=== PATIENT | male | born 1990 | race Caucasian/White ===

== ENCOUNTER 2016-11-29 22:33 | Emergency (ER) | payer BC ==
--- NOTE | ~2016-11-29 | CR63 ---
[facility]. [facility] A Service [facility] RADIOLOGY TEXT RESULTS PATIENT: MERRY CABRERA LOCATION: SED : [birth year] UNIT #: [id number] AGE: [address]: Rajwinder To SEX: M ORDER DR: [id number] [place] [address] [id number] E MR#: [id number] Acc #: [id number] NAME: MERRY CABRERA : 1990 SEX: M STUDY DATE/TIME: 11/29/2016 22:36 UNIT: SED ROOM: STUDY DESCRIPTION: CR Chest 2 View Attending Physician: Rajwinder To P.A.-C. Ordering Physician: Rajwinder To P.A.-C. Primary Care Physician: Primary Care Physician No MEDICAL IMAGING REPORT This report is preliminary unless electronic signature is present. EXAM Chest x-ray 11/29/2016 HISTORY 26-year-old male in the ED complaining of 1-week history of cough, fever, dizziness and nausea. TECHNIQUE PA and lateral upright chest series. FINDINGS The exam shows mild focal infiltrate in the lingula. Remaining portions of both lungs are clear. No visible pleural effusion. Heart size and pulmonary vascularity are normal. IMPRESSION Focal infiltrate in the lingula. Dictated by... Syd Rice M.D. THIS IS AN ELECTRONICALLY VERIFIED REPORT Syd Rice M.D. at 11/30/2016 4:05 AM KAELA/xi TD: 11/30/2016 01:17 JOB #: [id number] MEDICAL IMAGING REPORT [facility] A Service [facility] RADIOLOGY TEXT RESULTS PATIENT: MERRY CABRERA LOCATION: SED : [birth year] UNIT #: [id number] AGE: [address]: Rajwinder To SEX: M ORDER DR: Page 1 of 1
[~2016-11-29 22:33] MED LIST: ALBUTEROL17 GM INH; AMOXICILLIN875 MG PO; AUGMENTIN875 M1 PO; BROMFED DM COU118 ML PO; DECADRON PO; DELTASONE20 MG PO; DOLOBID500 MG PO; HYDROMET SYRUP480 ML PO; IBUPROFEN PO; LORTAB 5/500 TA1 TA1 PO; MOTRIN20 MG/ML PO; NO MEDICATIONS; NORVASC PO; NORVASC10 MG PO; PREDNISONE PO; ROBAXIN500 MG PO; VOLTAREN50 MG PO; VOLTAREN75 MG PO; ZESTRIL10 M1 PO
[2016-11-29 22:52] LABS: INFLUENZA A NEG (NEG); INFLUENZA B NEG (NEG)
[2016-11-29 23:22] LABS: BASOPHIL# 0.1 X10e3 (0-0.3); BASOPHIL% 0.5 % (0-2.5); EOSINOPHIL% 0.1 % (0.0-7.0); HEMATOCRIT 42.8 % (38.0-50.0); HEMOGLOBIN 14.5 gm/dL (13.0-16.0); LYMPHOCYTE% 7.9 % (17.0-45.0); MEAN CELL VOLUME 85.1 FL (83-96); MEAN CORPUSCULAR HEMOGLOBIN 28.9 PG (28-34); MEAN PLATELET VOLUME 8.3 FL (6.5-11.5); MONOCYTE# 2.1 X10e3 (0-1.0); MONOCYTE% 8.2 % (3.0-12.0); NEUTROPHIL# 21.4 X10e3 (1.5-7.1); NEUTROPHIL% 83.3 % (40-75); PLATELET COUNT 257 X10e3 (140-420); RED BLOOD COUNT 5.03 X10e (3.90-5.60); RED CELL DISTRIBUTION WIDTH 13.6 % (11.0-15.5); WHITE BLOOD COUNT 25.7 X10e3 (4.0-10.5)
[2016-11-29 23:25] LABS: DIFF IND YES
[2016-11-29 23:29] LABS: CALCIUM SERUM 8.7 mg/dL (8.4-10.2); POTASSIUM 3.9 mmol/L (3.5-5.1)
[2016-11-29 23:59] LABS: DIFFERENTIAL COMMENT Y; PLATELET ESTIMATE NORMAL (NORMAL)
== END 2016-11-30 00:30 | disposition home or self-care (01) ==
LOC: SED 22:33
PROVIDERS: Physician Assistant
DX: J18.1 Lobar pneumonia, unspecified organism (principal); J02.0 Streptococcal pharyngitis; I10 Essential (primary) hypertension
CPT/HCPCS: 36415; 71020; 80048; 83605; 85025; 87040; 87804; 87880; 96365; 96372; 96375; 99284; J0561; J0696; J2930

== ENCOUNTER 2017-04-21 02:45 | Emergency (ER) | payer BC ==
[~2017-04-21] VITALS: Ht 172.7 cm; Wt 111.1 kg
--- NOTE | ~2017-04-21 | CT16 ---
[facility] A Service of [facility] RADIOLOGY TEXT RESULTS PATIENT: MERRY CABRERA LOCATION: SED : [birth year] UNIT #: [id number] AGE: [address]: John Ravi MD SEX: M ORDER DR: [id number] [address] [address] [id number] E MR#: [id number] Acc #: [id number] NAME: MERRY CABRERA : 1990 SEX: M STUDY DATE/TIME: 04/21/2017 UNIT: SED ROOM: STUDY DESCRIPTION: CT Angio Chest for PE Attending Physician: John Ravi M.D. Ordering Physician: John Ravi M.D. Primary Care Physician: Primary Care Physician No MEDICAL IMAGING REPORT This report is preliminary unless electronic signature is present. EXAM Chest CTA 04/21 at 04:01 INDICATIONS Elevated D-dimer. Productive cough with body aches and chest pain with inspiration. Wheezing, shortness of air. Symptoms for 1 week. TECHNIQUE Axial images were obtained through the chest following IV contrast administration. 3-D reformats were obtained. No comparison chest CT. The CT exam was performed with one or more of the following radiation dose reduction techniques: automatic exposure control, adjustment of mA and/or kV according to patient size, and iterative reconstruction. FINDINGS There is no pulmonary embolism or aortic dissection. There is a small left and moderate right pleural effusion. No pericardial fluid. There is mediastinal and hilar adenopathy. The right hilar node measures 2.1 x 1.7 cm. Left hilar node measures about 1.5 cm short axis. There is a right paratracheal node measuring 1.8 x 1.6 cm. The azygoesophageal recess node measures about 1.7 cm short axis. Multiple other prominent nodes are seen. There is septal thickening in the lungs suggesting edema. However, multi focal alveolar infiltrates are seen compatible with pneumonia. These are worse in the right upper lobe. No pneumothorax. Note is made of a broad-based disc osteophyte complex at T12-L1 resulting in moderate to severe central canal stenosis. The upper abdomen is unremarkable. IMPRESSION 1. No PE or aortic dissection. 2. Bilateral effusions right greater than left STS. [facility] A Service of [facility] RADIOLOGY TEXT RESULTS PATIENT: MERRY CABRERA LOCATION: SED : [birth year] UNIT #: [id number] AGE: [address]: John Ravi MD SEX: M ORDER DR: 3. Mediastinal and bilateral hilar adenopathy. 4. There does appear to be of developing pulmonary edema. More confluent areas of alveolar infiltrate in both lungs, most severe in the right upper lobe, is concerning for superimposed pneumonia. 5. Followup chest CT in 3 months with contrast is recommended for further characterization of the adenopathy. 6. Note is made of a disc osteophyte complex at T12-L1 causing moderate to severe central canal stenosis. Dictated by... Marc Valencia Jr., M.D. THIS IS AN ELECTRONICALLY VERIFIED REPORT Marc Valencia Jr., M.D. at 04/21/2017 8:34 PM NARCISA/juana TD: 04/21/2017 12:35 JOB #: [id number] MEDICAL IMAGING REPORT Page 1 of 1
--- NOTE | ~2017-04-21 | CR72 ---
[facility] A Service of [facility] RADIOLOGY TEXT RESULTS PATIENT: MERRY CABRERA LOCATION: SED : [birth year] UNIT #: [id number] AGE: [address]: John Ravi MD SEX: M ORDER DR: [id number] [place] [id number] E MR#: [id number] Acc #: [id number] NAME: MERRY CABRERA : 1990 SEX: M STUDY DATE/TIME: 04/21/2017 03:26 UNIT: SED ROOM: STUDY DESCRIPTION: CR Chest Single View Portable Attending Physician: John Ravi M.D. Ordering Physician: John Ravi M.D. Primary Care Physician: Primary Care Physician No MEDICAL IMAGING REPORT This report is preliminary unless electronic signature is present. EXAM Portable chest, 04/21 at 03:26 INDICATIONS Productive cough, body aches, wheezing and pain with deep inspiration for 1 week. FINDINGS AP portable chest compared with 11/29/2016. Heart is enlarged. There is vascular congestion. There are bilateral [id number] lung interstitial and alveolar infiltrates. Considerations include pulmonary edema and/or pneumonia. No pneumothorax is seen. There is probably a trace amount of left side pleural fluid. Dictated by... Marc Valencia Jr., M.D. THIS IS AN ELECTRONICALLY VERIFIED REPORT Marc Valencia Jr., M.D. at 04/21/2017 8:34 PM NARCISA/buddy TD: 04/21/2017 12:33 JOB #: [id number] MEDICAL IMAGING REPORT Page 1 of 1
--- NOTE | ~2017-04-21 | EKG ---
PATIENT: MERRY CABRERA UNIT #: [id number] Ventricular Rate: 104 BPM Atrial Rate: 104 BPM P-R Interval: 134 ms QRS Duration: 98 ms Q-T Interval: 372 ms QTC Calculation(Bezet): 489 ms P [place]: 62 degrees Calculated R [place]: 42 degrees Calculated T [place]: 75 degrees Diagnosis Line: Sinus tachycardia Diagnosis Line: Left atrial enlargement Diagnosis Line: Nonspecific T wave abnormality Diagnosis Line: Abnormal ECG Diagnosis Line: When compared with ECG of 28-AUG-2016 00:28, Diagnosis Line: No significant change was found Diagnosis Line: Confirmed by MAGNOLIA HARRIS MD ([id number]) on 04/21/2017 Diagnosis Line: 7:35:23 PM INTERPRETING MD: STEVEN MARIN
[2017-04-21 03:25] LABS: BASOPHIL# 0.1 X10e3 (0-0.3); EOSINOPHIL# 0.3 X10e3 (0-0.7); EOSINOPHIL% 2.3 % (0.0-7.0); HEMATOCRIT 46.2 % (38.0-50.0); HEMOGLOBIN 15.7 gm/dL (13.0-16.0); LYMPHOCYTE# 3.3 X10e3 (1.0-3.5); LYMPHOCYTE% 26.6 % (17.0-45.0); MEAN CELL VOLUME 86.5 FL (83-96); MEAN CORPUSCULAR HEMOGLOBIN 29.4 PG (28-34); MEAN PLATELET VOLUME 9.4 FL (6.5-11.5); MONOCYTE# 0.8 X10e3 (0-1.0); MONOCYTE% 6.3 % (3.0-12.0); NEUTROPHIL% 63.8 % (40-75); PLATELET COUNT 293 X10e3 (140-420); RED BLOOD COUNT 5.34 X10e (3.90-5.60); RED CELL DISTRIBUTION WIDTH 12.8 % (11.0-15.5); WHITE BLOOD COUNT 12.6 X10e3 (4.0-10.5)
[2017-04-21 03:26] LABS: DIFF IND NO
[2017-04-21 03:36] LABS: POC - CKMB 6.1 ng/mL (0.0-7.9); POC - TROPONIN <0.05 ng/mL (<=0.05)
[2017-04-21 03:40] LABS: ALBUMIN SERUM 3.8 g/dL (3.5-5.0); BILIRUBIN, DIRECT 0.1 mg/dL (0.0-0.2); BILIRUBIN,INDIRECT 0.5 mg/dL (0.0-0.9); BILIRUBIN,TOTAL 0.6 mg/dL (0.2-2.0); BUN/CREATININE RATIO 12.22; CALCIUM SERUM 9.1 mg/dL (8.4-10.2); CREATININE SERUM 0.9 mg/dL (0.6-1.4); POTASSIUM 3.6 mmol/L (3.5-5.1); PROTEIN TOTAL SERUM 7.1 g/dL (6.0-8.3)
[2017-04-21 04:28] LABS: AMPHETAMINE NEG (NEG); BARBITURATES NEG (NEG); BENZODIAZEPINES NEG (NEG); COCAINE NEG (NEG); MARIJUANA NEG (NEG); OPIATES NEG (NEG); TRICYCLIC ANTIDEPRESSANTS NEG (NEG); U METHADONE NEG (NEG)
== END 2017-04-21 06:30 ==
LOC: SED 02:45
PROVIDERS: Emergency Medicine
DX: J18.9 Pneumonia, unspecified organism (principal); J81.1 Chronic pulmonary edema; I10 Essential (primary) hypertension
CPT/HCPCS: 36415; 71010; 71275; 80048; 80076; 80307; 82553; 83605; 83874; 83880; 84484; 85025; 85379; 93005; 94640; 96361; 96365; 96375; 96376; 99285; J0456; J0696; J1940; Q9967